=== PATIENT | male | born 1950 | race Caucasian/White ===

== ENCOUNTER 2021-01-19 12:49 | Inpatient (IN) | payer MEDICARE, OTHER ==
[~2021-01-19] VITALS: Ht 182.9 cm; Wt 115.9 kg
[~2021-01-19 12:49] MED LIST: DEXA6 PO; Prinivil10 MG PO
[2021-01-19] MEDS ORDERED: DECADRON6 M1 PO (13:46)
[2021-01-19] MEDS ORDERED: PROM25 PO (13:46)
[2021-01-19 16:55] LABS: Hematocrit 36.8 % (37.0-53.0); Hemoglobin 13.1 g/dL (13.5-17.5)
[2021-01-19 17:02] LABS: Anion Gap 8 mmol/L (6-16); Blood Urea Nitrogen 13 mg/dL (8-24); Bun/Creatinine Ratio 14.6 (12.0-20.0); CO2, Blood 21 mmol/L (21-32); Calcium, Blood 7.8 mg/dL (8.5-10.1); Chloride, Blood 108 mmol/L (98-108); Creatinine, Blood 0.89 mg/dL (0.60-1.20); Glomerular Filtration Rate >60 (60-); Glucose, Blood 116 mg/dL (70-99); Potassium, Blood 4.2 mmol/L (3.5-5.5); Sodium, Blood 137 mmol/L (136-145)
--- NOTE | 2021-01-19 17:55 | NUR ---
SHIFT SUMMARY PT IS AOX4. PT DENIES PAIN, N/V, SOB. PT REMAINS ON 5 L 02 VIA NC. PT IS INDEPENDENT IN ROOM. PT APPETITE IS GOOD. ENHANCED ISOLATION MAINTAINED T/O SHIFT. PT DID NOT HAVE VISITORS PER COVID PROTOCOL. PT ADMITTED TO UNIT AT APPROXIMATELY 1750. PLAN IS TO MONITOR O2 STATUS. PT IS IN BED, CALL LIGHT IN REACH, LOW POSITION.
--- NOTE | 2021-01-20 05:46 | NUR ---
SHIFT SUMMARY- PT. A&O, DIONICIOID POS, INDEPENDENT IN ROOM. THIS AM SATS IN THE LOW 80'S. O2 INCREASED FROM 4L TO 15L OXYMIZER WITH SATS MAINTAINED AT 92%. PT. INSTRUCTED TO LAY ON SIDE OR PRONE. HAS DRY COUGH, NO COMPLAINTS OF PAIN DURING THE NIGHT. MEDICATED PT. W/SLEEP AID LAST NIGHT PER REQUEST. RESTED QUIETLY T/O THE NIGHT, NO APPARAENT DISTRESS NOTED. DENIES NEEDS AT THIS TIME. CALL LIGHT WITHIN REACH AND SIDE RAILS UPX2. WILL CONT TO MONITOR.
--- NOTE | 2021-01-20 18:25 | NUR ---
PT REPORTS,"I'M FEELING BETTER THIS EVENING" CONTINUES ON 10L OXIMIZER AND MAINTAINING SATURATIONS. NO ACUTE CHANGES.
--- NOTE | 2021-01-20 20:10 | NUR ---
ASSUMED CARE: AOX3, DYSPNEIC UPON AMBULATION. STATES HE FEELS HE RECOVERS OK WHEN HE GETS UP TO THE BATHROOM. FEELS HE CAN TAKE IN A DEEPER BREATH THEN HE DID YESTERDAY. SATS >90% CURRENTLY ON 10 L OXYMIZER. DENIES ANY PAIN OR DISCOMFORT. RESP ARE EVEN AND UNLABORED. COUGH IS HACKY AT TIMES, MOSTLY WHEN HE LAYS DOWN. TRIED TO PRONE BUT IS NOT USED TO SLEEPING ON HIS ABDOMIN. WILL CONTINUE TO MONITOR, CALL LIGHT IN REACH.
--- NOTE | 2021-01-21 03:55 | NUR ---
ALBERT GOT UP TO THE BATHROOM WHILE LELE SANDS WAS IN THE ROOM. SATS DROPPED DOWN TO THE 70'S, AND HE WAS HAVING TROUBLE RECOVERING. INCREASE O2 TO 15LITERS. HAD PATIENT PRONE. JUST DECREASED HIM BACK DOWN TO 10L WHILE PRONING SATS MAINTAINED 92-93%. ENCOURAGED HIM TO USE URINAL FROM HERE ON OUT, CALL FOR IT TO GET EMPTIED. HE AGREED TO THAT.
--- NOTE | 2021-01-21 05:56 | NUR ---
SHIFT SUMMARY: 70 YR OLD MALE COVID POS, INDEPENDENT IN ROOM NOW TO URINAL AT BEDSIDE DUE TO DESATS DOWN TO 70%. HAD TO INCREASE O2 SATS TO 15L OXIMIZER AFTER BTHRM USE, RECOVERY WAS TO LONG THEREFORE THE INCREASE. AFTER LAYING PRONE POSITION WAS ABLE TO DECREASE BACK DOWN TO 10L BUT WITH SLIGHT MOVEMENT HE DESATS BELOW 88%. CURRENTLYING HOLDING ON 12 LITERS WITH SATS 92-93%. COUGH DRY, NO PAIN. CONTINUOUS PULSE OX NOW OUTSIDE OF THRE ROOM. QUIET MOST OF THE NIGHT. CALL LIGHT WITHIN REACH.
[2021-01-21 06:15] LABS: BASOPHILS ABSOLUTE AUTO 0.03 K/mm3 (0.00-0.23); BASOPHILS PERCENT AUTO 0 % (0-2); EOSINOPHILS PERCENT AUTO 0 % (0-6); Hemoglobin 13.9 g/dL (13.5-17.5); Mean Corpuscular HGB 29.5 pg (26.0-34.0); Mean Corpuscular HGB Conc 34.8 g/dL (31.5-36.5); Mean Corpuscular Volume 85 fL (80-100); Mean Platelet Volume 9.3 fL (9.1-12.4); Platelet Count 339 K/mm3 (150-400); RDW Coefficient Variation 13.5 % (11.7-14.2); RDW Standard Deviation 42.3 fL (35.1-46.3); Red Blood Cell Count 4.71 M/mm3 (4.30-5.90); White Blood Cell Count 12.51 K/mm3 (4.00-11.30)
[2021-01-21 06:21] LABS: IMMATURE GRAN ABSOLUTE AUTO 0.17 K/mm3 (0.00-0.10); IMMATURE GRAN PERCENT AUTO 1 % (0-1); LYMPHOCYTES ABSOLUTE AUTO 1.05 K/mm3 (0.84-5.20); LYMPHOCYTES PERCENT AUTO 8 % (21-46); MONOCYTES ABSOLUTE AUTO 0.71 K/mm3 (0.16-1.47); MONOCYTES PERCENT AUTO 6 % (4-13); NEUTROPHILS ABSOLUTE AUTO 10.55 K/mm3 (1.96-9.15); NEUTROPHILS PERCENT AUTO 84 % (41-73)
[2021-01-21 06:31] LABS: Alanine Aminotransfer (ALT/SGP 38 U/L (12-78); Albumin, Blood 2.5 g/dL (3.4-5.0); Albumin/Globulin Ratio 0.6 (0.8-1.8); Alk Phos 56 U/L (50-136); Anion Gap 9 mmol/L (6-16); Aspartate Aminotrans (AST/SGOT 85 U/L (12-37); Bilirubin, Total 0.9 mg/dL (0.1-1.0); Blood Urea Nitrogen 19 mg/dL (8-24); Bun/Creatinine Ratio 24.8 (12.0-20.0); CO2, Blood 22 mmol/L (21-32); Chloride, Blood 107 mmol/L (98-108); Creatinine, Blood 0.77 mg/dL (0.60-1.20); Globulin, Blood 4.2 g/dL (2.2-4.0); Glomerular Filtration Rate >60 (60-); Glucose, Blood 132 mg/dL (70-99); Potassium, Blood 4.3 mmol/L (3.5-5.5); Sodium, Blood 138 mmol/L (136-145); Total Protein, Blood 6.7 g/dL (6.4-8.2)
--- NOTE | 2021-01-21 18:15 | NUR ---
HAS RESTED QUIETLY T/O DAY. O2 IN PLACE. CONT BIOX FROM 89-92%.
--- NOTE | 2021-01-22 06:01 | NUR ---
SHIFT SUMMARY: PT IS A&OX3 CALM COOPERATIVE SHORT OFF BREATHE WITH EXERTION. PT POX 86-92% 12LNC OXIMIZER. PATIENT SELF PRONES W/ AUDIBLE EXPIRATORY WHEEEZES WITH MILD PERSISTENT COUGH.PT REPORTS GENERALIZED PAIN FROM BEING IN PRN GIVEN. USES CALL LIGHT APPROPERIATELY CALL LIGHT AT BEDISDE TABLE BED LOWERED. PT REPORTS RESTING COMFORTABLY T/O SHIFT.
--- NOTE | 2021-01-22 17:17 | NUR ---
PT HAS BEEN PRONING MOST THE SHIFT. SATS REMAINED ABOVE 90% WITH EPISODES OF DESATING WHEN USING THE URINAL. O2 WERE HIGH 14 L AND LOW 7L. PT IS ALERT AND ABLE TO EXPRESS ANY DISCOMFORT. HE HAS HAD NO COMPLAINTS . CALL LIGHT WITHIN REACH , BED IN LOW POSITION, WILL CONTINUE TO MONITOR.
--- NOTE | 2021-01-22 21:42 | NUR ---
pt on 16 l oximizer & wireless bioxx showed sats 84. Called RT & NRB applied at 16 l with sats up to 91 after 1/2.
--- NOTE | 2021-01-22 23:08 | NUR ---
DR HADDAD called to update on hypoxia & max oxygen with oximizer MD Stalin orders heated high flow oxygen if unable to maintain sats on oximixer or NRB. Discussed with RT & they are aware he may need heated high flow oxygen to keep sats greater than 90%.
--- NOTE | 2021-01-23 06:26 | NUR ---
81 year old MAle who has lived in [place] with a person with back problems who recently had back surgery & he was unable to provide care so PT who is unable to care for self was hospitalized per PT report. PT says he has family in area but they are not supportive. PT does not use call carranza approp,. he hollers out. He is unable or unwilling to use urinal unassisted. Wearing oxygen but removes them repeatedly. PT obese diabetic & has psych eval pending to see if PT needs guardianship for safe placement.
--- NOTE | 2021-01-23 06:35 | NUR ---
PT with covid 19 hypoxia had poor oxygenation requiring max oxygen and still not always 90 on 16 l oximizer or nonrebreather. He refused airvo high flow heated oxygen & said he is doing fine he just has dried buggers that are blocking his nares & upper air passages. He called this RN to tell me that he needed intense removal of dried nasal secretions. He has bloody nose & states he is fine with oxymizer as long as staff remove his dried nasal nasal secretions. EXplained I could not safely remove his nasal secretions so he insisted on showering. RELATIONS LIAISON accompanied PT to shower & he did desat to 70's despite 16 l oximizer recovered slowly.
--- NOTE | 2021-01-23 12:28 | NUR ---
Spiritual care referral: PC entered and pt states, "Thank you for coming. Please don't give up on me." I assured pt nobody was giving up on him. Spoke with pt about his life. Pt engaged well, though per RN, pt's O2 level dropped during conversation. Pt [place] in [place] and did not talk about family, though he was able to identify two "close friends" who live near him. We converse about pt's moises and values. Pt is appreciative of any and all support from staff - specifically the care from the nurses. Advisable to continue providing assurance to pt of care. I will remain available.
--- NOTE | 2021-01-23 16:50 | NUR ---
SHIFT SUMMARY PT AOX3; PT IS NOW ALMOST MAX ON AIRVO AND DESATS ON ANY MOVEMENT. PT CONFUSED AT TIMES AND WANTING TO GO HOME; EXPLAINED ABOUT THE OXYGEN NEEDS AT THIS TIME. DENIES PAIN AT THIS TIME. CALLED SPIRITIAL CARE PER PT REQUEST; HIGH BP THIS AFTERNOON- CALLED DR FOR HTN; MEDICATED PER EMAR AND WILL RECHECK BP. BED IS IN THE LOWEST POSITION AND CALL LIGHT WITHIN REACH
[2021-01-24 05:48] LABS: BASOPHILS ABSOLUTE AUTO 0.04 K/mm3 (0.00-0.23); BASOPHILS PERCENT AUTO 0 % (0-2); EOSINOPHILS ABSOLUTE AUTO 0.02 K/mm3 (0.00-0.68); EOSINOPHILS PERCENT AUTO 0 % (0-6); Hematocrit 40.3 % (37.0-53.0); Hemoglobin 13.8 g/dL (13.5-17.5); IMMATURE GRAN ABSOLUTE AUTO 0.63 K/mm3 (0.00-0.10); IMMATURE GRAN PERCENT AUTO 5 % (0-1); LYMPHOCYTES PERCENT AUTO 10 % (21-46); MONOCYTES ABSOLUTE AUTO 0.95 K/mm3 (0.16-1.47); MONOCYTES PERCENT AUTO 7 % (4-13); Mean Corpuscular HGB 29.4 pg (26.0-34.0); Mean Corpuscular HGB Conc 34.2 g/dL (31.5-36.5); Mean Corpuscular Volume 86 fL (80-100); Mean Platelet Volume 8.8 fL (9.1-12.4); NEUTROPHILS ABSOLUTE AUTO 10.01 K/mm3 (1.96-9.15); NEUTROPHILS PERCENT AUTO 77 % (41-73); NRBC ABSOLUTE 0.02 K/mm3 (0.00-0.02); NRBC Auto 0.2 /100 WBC (0.0-0.2); Platelet Count 297 K/mm3 (150-400); RDW Coefficient Variation 13.2 % (11.7-14.2); RDW Standard Deviation 40.7 fL (35.1-46.3); Red Blood Cell Count 4.69 M/mm3 (4.30-5.90); White Blood Cell Count 12.95 K/mm3 (4.00-11.30)
[2021-01-24 06:05] LABS: International Normalized Ratio 1.14; Prothrombin Time Results 12.2 Sec (9.7-11.5)
--- NOTE | 2021-01-24 06:07 | NUR ---
SHIFT SUMMARY PT CONTINUES TO NEED HIGH AMOUNTS OF OXYGEN. REMAINS ON AIRVO 60 LPM AND 93% FIO2. RT DISCUSSED THINKING ABOUT PLACING PT ON BIPAP BUT PT DID NOT REQUIRE THIS EVENING. PT DOES DESAT A LOT WITH LITTLE EXERTION. DESATTING INTO THE 80'S AND EVEN THE 70'S. PT DOES RECOVER BUT TAKES SOME TIME OF REST. PT FIDGETS FREQUENTLY. HAS A DIFFICULT TIME SITTING STILL. SELF PRONES AND SELF CHECKS O2, ADJUSTS SELF IN BED NEEDED. LUNG SOUNDS VERY DIMINISHED. PT DENIES ANY PAIN OR NAUSEA. HAS ANXIETY AT TIMES. HTN THIS AM. PT RESTING IN BED AT THIS TIME. WILL CONTINUE TO MONITOR.
[2021-01-24 06:10] LABS: Alanine Aminotransfer (ALT/SGP 48 U/L (12-78); Albumin, Blood 2.6 g/dL (3.4-5.0); Albumin/Globulin Ratio 0.7 (0.8-1.8); Alk Phos 70 U/L (50-136); Anion Gap 8 mmol/L (6-16); Aspartate Aminotrans (AST/SGOT 56 U/L (12-37); Bilirubin, Total 0.8 mg/dL (0.1-1.0); Blood Urea Nitrogen 20 mg/dL (8-24); Bun/Creatinine Ratio 26.8 (12.0-20.0); CO2, Blood 26 mmol/L (21-32); Chloride, Blood 104 mmol/L (98-108); Creatinine, Blood 0.75 mg/dL (0.60-1.20); Globulin, Blood 3.7 g/dL (2.2-4.0); Glomerular Filtration Rate >60 (60-); Glucose, Blood 94 mg/dL (70-99); Magnesium, Blood 2.3 mg/dL (1.6-2.4); Potassium, Blood 3.8 mmol/L (3.5-5.5); Sodium, Blood 138 mmol/L (136-145); Total Protein, Blood 6.3 g/dL (6.4-8.2)
--- NOTE | 2021-01-24 11:07 | NUR ---
Spiritual Care: Known from previous visit. Reported that pt had been wanting to go home. Discussed with pt his thoughts on stay in the hospital. Pt says, "I'm thinking about discharging tomorrow." After some exploration, it is realized pt believed he had been in the hospital for at least 2 weeks, when it had only been a 6 days. Emphasis that that time frame is short in comparison to normal covid pt stay. Reinforced RN's communication with pt on his care. Provided hospitality and pt verbalized gratitude for the checkin.
--- NOTE | 2021-01-24 18:30 | NUR ---
SHIFT SUMMARY PT IS AO WITH INTERMITTENT CONFUSION. PT CONFUSED THIS AM, BUT REDIRECTABLE. PT DENIES PAIN, N/V. PT IS PLEASANT THIS CARLOS. PT APPETITE IS MODERATE. PT REMAINS ON AIRVO WITH PRONING. SATS DROPPED TO 78% WHILE ON AIRVO AND PT PRONED WITH SATS ELEVATING TO 90%. PT IS SBA IN ROOM. ENHANCED ISOLATION PRECAUTIONS MAINTAINED T/O SHIFT. PT IS IN BED, CALL LIGHT IN REACH, LOW POSITION.
[2021-01-25 05:22] LABS: BASOPHILS ABSOLUTE AUTO 0.04 K/mm3 (0.00-0.23); BASOPHILS PERCENT AUTO 0 % (0-2); EOSINOPHILS ABSOLUTE AUTO 0.11 K/mm3 (0.00-0.68); EOSINOPHILS PERCENT AUTO 1 % (0-6); Hematocrit 39.9 % (37.0-53.0); Hemoglobin 13.8 g/dL (13.5-17.5); IMMATURE GRAN ABSOLUTE AUTO 0.53 K/mm3 (0.00-0.10); IMMATURE GRAN PERCENT AUTO 4 % (0-1); LYMPHOCYTES ABSOLUTE AUTO 1.11 K/mm3 (0.84-5.20); LYMPHOCYTES PERCENT AUTO 8 % (21-46); MONOCYTES ABSOLUTE AUTO 0.88 K/mm3 (0.16-1.47); MONOCYTES PERCENT AUTO 7 % (4-13); Mean Corpuscular HGB 29.6 pg (26.0-34.0); Mean Corpuscular HGB Conc 34.6 g/dL (31.5-36.5); Mean Corpuscular Volume 86 fL (80-100); Mean Platelet Volume 8.7 fL (9.1-12.4); NEUTROPHILS ABSOLUTE AUTO 10.49 K/mm3 (1.96-9.15); NEUTROPHILS PERCENT AUTO 80 % (41-73); Platelet Count 301 K/mm3 (150-400); RDW Coefficient Variation 13.1 % (11.7-14.2); RDW Standard Deviation 40.8 fL (35.1-46.3); Red Blood Cell Count 4.66 M/mm3 (4.30-5.90); White Blood Cell Count 13.16 K/mm3 (4.00-11.30)
[2021-01-25 05:37] LABS: International Normalized Ratio 1.09; Prothrombin Time Results 11.7 Sec (9.7-11.5)
--- NOTE | 2021-01-25 05:39 | NUR ---
SHIFT SUMMARY A/O, ABLE TO MAKE NEEDS KNOWN. COOPERATIVE WITH CARE. CALLS AND ANSWERS QUESTIONS APPROPRIATELY. NO C/O PAIN/DISCOMFORT. APPEARED TO REST MUCH OF THE NIGHT. CONTINUES ON AIRVO /c 60LPM @ 90% FIO2. O2 SATURATIONS REMAIN IN THE 90s. NO ACUTE CHANGES NOTED. BED REMAINED IN LOWEST POSTIION. CALL LIGHT AND BELONGINGS WITHIN REACH. CONTINUE WITH CURRENT PLAN OF CARE.
[2021-01-25 05:53] LABS: Anion Gap 8 mmol/L (6-16); Blood Urea Nitrogen 19 mg/dL (8-24); Bun/Creatinine Ratio 24.9 (12.0-20.0); CO2, Blood 26 mmol/L (21-32); Calcium, Blood 8.1 mg/dL (8.5-10.1); Chloride, Blood 102 mmol/L (98-108); Creatinine, Blood 0.76 mg/dL (0.60-1.20); Glomerular Filtration Rate >60 (60-); Glucose, Blood 98 mg/dL (70-99); Magnesium, Blood 2.1 mg/dL (1.6-2.4); Potassium, Blood 3.9 mmol/L (3.5-5.5); Sodium, Blood 136 mmol/L (136-145)
--- NOTE | 2021-01-25 20:19 | NUR ---
SHIFT SUMMARY: PATIENT WANTED TO LEAVE AMA THIS MORNING, STATED HE WANTED TO GO HOME TO . HE IS VERY DRAMATIC ABOUT THIS ILLNESS. SWITCHED FROM AIRVO TO NASAL CANNULA LATE THIS MORNING, ON 3-4 L/MIN, WITH O2 SATS 92-96%. IS ABLE TO TURN HIMSELF PRONE. DENIED PAIN. USING URINAL INDEPENDENTLY. APPETITE OK. AGREED TO STAY IN HOSPITAL.
--- NOTE | 2021-01-26 04:52 | NUR ---
SHIFT SUMMARY A/O, ABLE TO MAKE NEEDS KNOWN. COOPERATIVE WITH CARE. CALLS AND ANSWERS QUESTIONS APPROPRIATELY. NO C/O PAIN/DISCOMFORT. REMAINS ON 4L VIA NC, SPEAKING IN FULL SENTENCES WITH EQUAL RISE/FALL. NO ACUTE CHANGES NOTED OVERNIGHT. APPEARED TO REST MUCH OF THE NIGHT. BED IN LOWEST POSITION. CALL LIGHT AND BELONGINGS WITHIN REACH. CONTINUE WITH CURRENT PLAN OF CARE.
[2021-01-26] MEDS ORDERED: ACET500 PO (14:25)
[2021-01-26] MEDS ORDERED: DECADRON PO (14:26)
--- NOTE | 2021-01-26 21:31 | NUR ---
PATIENT DISCHARGED TO HOME VIA [facility] (HAS NO TRANSPORTATION BENEFIT). IV SALINE LOCK REMOVED WITHOUT INCIDENT. SMALL PORTABLE OXYGEN TANK DELIVERED BY [facility] PT INSTRUCTED ON IT'S USE. VERBALIZED UNDERSTANDING OF D/C INSTRUCTIONS, INCLUDING MEDICATIONS AND THE NEED TO MAKE F/U APPOINTMENT WITH PCP IN [place]. OFF UNIT VIA W/C @ 4293. NO BELONGINS LEFT BEHIND IN ROOM.
== END 2021-01-26 18:59 | disposition home or self-care (01) | DRG 177 ==
LOC: ER 12:49 → ERHOLD 16:14 → MEDS 16:14
PROVIDERS: Family Medicine; Internal Medicine; ADMIT Internal Medicine
PROC: 3E0333Z Introduction of Anti-inflammatory into Peripheral Vein, Percutaneous Approach (ICD-10-PCS; principal; 2021-01-19)
PROC: 8E0ZXY6 Isolation (ICD-10-PCS; 2021-01-19)
PROC: XW033E5 Introduction of Remdesivir Anti-infective into Peripheral Vein, Percutaneous Approach, New Technology Group 5 (ICD-10-PCS; 2021-01-20)
PROC: 5A0945A Assistance with Respiratory Ventilation, 24-96 Consecutive Hours, High Flow/Velocity Cannula (ICD-10-PCS; 2021-01-23)
DX: U07.1 COVID-19 (principal); J12.82 Pneumonia due to coronavirus disease 2019; J96.01 Acute respiratory failure with hypoxia; E88.81 Metabolic syndrome and other insulin resistance; I10 Essential (primary) hypertension; Z99.81 Dependence on supplemental oxygen; Z79.899 Other long term (current) drug therapy
CPT/HCPCS: 36415; 71045; 80048; 80053; 83735; 85014; 85018; 85025; 85379; 85610; 86140; 93005; 93010; 94761; 94762; 96374; 96375; 99285-25; A9270; J1100; J1200; J1650; J1885; J2405; J7030; J7120